=== PATIENT | male | born 1980 | race Caucasian/White ===

== ENCOUNTER → 2019-05-06 16:10 | Outpatient (CLI) | payer BC, SELFPAY ==
--- NOTE | 2019-05-06 16:32 | ECG_ITS ---
APPROVED REPORT Exam: Resting ECG HR:87 bpm ECG Measurements Heart Rate 87 AXES MO 132 P 74 QRSd 88 QRS 80 QT 320 T 67 QTc 385 <Conclusion> Normal sinus rhythm Normal ECG Electronically signed by : Raj Burch, 05/08/2019 19:15:44
[2019-05-06 16:51] LABS: Basophils # 0.1 K/mm3 (0-0.2); Basophils % 0.6 % (0.1-2.0); Eosinophils # 0.3 K/mm3 (0.0-0.4); Eosinophils % 2.4 % (0.1-12.0); Hematocrit 47.8 % (42.0-52.0); Hemoglobin 15.6 g/dL (14.1-18.0); Lymphocytes # 3.8 K/mm3 (0.7-4.5); Mean Corpuscular HGB Conc 32.7 g/dL (31.8-35.4); Mean Corpuscular Hemoglobin 30.5 pg (27.0-31.2); Mean Corpuscular Volume 93.3 fl (80-94); Mean Platelet Volume 7.6 fl (7.4-10.4); Monocytes # 0.7 K/mm3 (0.1-1.0); Monocytes % 5.8 % (1.7-9.3); Neutrophils # 7.9 K/mm3 (1.8-7.8); Neutrophils % 61.2 % (37.0-80.0); Platelet Count 433 K/mm3 (142-424); Red Blood Count 5.12 M/mm3 (4.60-6.20); Red Cell Distribution Width 13.3 % (11.5-17.5); White Blood Count 12.8 K/mm3 (4.8-10.8)
== END ==
PROVIDERS: Visit Provider Otolaryngology
DX: Z01.818 Encounter for other preprocedural examination (principal); H61.21 Impacted cerumen, right ear; H60.8X1 Other otitis externa, right ear
CPT/HCPCS: 36415; 85025; 93005

== ENCOUNTER → 2019-09-14 13:34 | Outpatient (CLI) | payer BC, SELFPAY ==
--- NOTE | 2019-09-14 13:39 | XR_ITS ---
PROCEDURE: XR FOOT WT BEARING RT 3V CLINICAL INDICATION: pain COMPARISON: No exams were available for comparison FINDINGS: No fracture or dislocation. No lytic or blastic change. There is normal mineralization. The joint spaces are well-preserved. No significant degenerative/arthritic changes. No erosive changes evident. Other findings:Borderline pes planus IMPRESSION: Borderline pes planus otherwise negative Dictated by: José Miguel Kwan MD 09/14/2019 14:51 Electronically signed by José Miguel Kwan MD in [facility] 09/14/2019 14:51
--- NOTE | 2019-09-14 13:39 | XR_ITS ---
PROCEDURE: XR FOOT WT BEARING LT 3V CLINICAL INDICATION: pain Foot pain COMPARISON: No exams were available for comparison FINDINGS: No fracture or dislocation. No lytic or blastic change. There is normal mineralization. The joint spaces are well-preserved. No significant degenerative/arthritic changes. No erosive changes evident. Other findings:None. IMPRESSION: No acute findings. Dictated by: José Miguel Kwan MD 09/14/2019 14:52 Electronically signed by José Miguel Kwan MD in [facility] 09/14/2019 14:52
== END ==
PROVIDERS: PCP Family Medicine; Visit Provider Podiatrist
DX: M79.672 Pain in left foot (principal); M79.671 Pain in right foot
CPT/HCPCS: 73630

== ENCOUNTER → 2019-10-04 14:31 | Outpatient (CLI) | payer BC, SELFPAY ==
--- NOTE | 2019-10-04 14:33 | US_ITS ---
APPROVED REPORT Exam Type: Lower Extremity Segmental Pressures Hiv Nurse: Nata De La Vega RDCS Indications Rest Pain: Numbness/Tingling Current Smoker History of Smoking Pressures/Indices Right Indices Left Indices Brachial 121.00 mmHg Brachial 121.00 mmHg Low Thigh 122.00 mmHg 1.01 Low Thigh 120.00 mmHg 0.99 Calf 137.00 mmHg 1.13 Calf 118.00 mmHg 0.98 Ankle(PT) 130.00 mmHg 1.07 Ankle(PT) 130.00 mmHg 1.07 Ankle(DP) 129.00 mmHg 1.07 Ankle(DP) 125.00 mmHg 1.03 Digit 119.00 mmHg 0.98 Digit 104.00 mmHg 0.86 Findings R SHERRIE 1.1 L SHERRIE 1.1 R TBI 1.0 L TBI .9 NORMAL PULSES/WAVEFORMS Conclusion Normal appearing resting noninvasive lower extremity arterial study. Electronically signed by : José Miguel Kwan MD 10/04/2019 17:39:28
== END ==
PROVIDERS: PCP Family Medicine; Visit Provider Podiatrist
DX: R09.89 Other specified symptoms and signs involving the circulatory and respiratory systems (principal)
CPT/HCPCS: 93923

== ENCOUNTER → 2019-10-06 16:01 | Outpatient (CLI) | payer BC, SELFPAY ==
--- NOTE | 2019-10-06 16:01 | MR_ITS ---
PROCEDURE: MR FOOT RT WO/W CON CLINICAL INDICATION: Right foot pain Foot pain and burning, Miranda's neuroma Miranda's neuroma the common new in worsening pain along the right foot between the 2nd and 3rd metatarsals, metatarsalgia COMPARISON: XR FOOT WT BEARING RT 3V from 09/14/2019 TECHNIQUE: Routine multiplanar multi echo sequences are performed without and with gadolinium enhancement. FINDINGS: No fracture or dislocation. No bone bruise apparent. No bone marrow edema. No abnormal fluid collections. No evidence of Miranda's neuroma. No ligamentous or tendon abnormalities apparent. Small amount fluid is present along the posterior aspect of the talocalcaneal joint which is nonspecific. No enhancing lesions. The talar dome has an unremarkable appearance. No soft tissue masses. Plantar aponeurosis appears intact IMPRESSION: Negative MRI of the foot without and with gadolinium enhancement Dictated by: José Miguel Kwan MD 10/08/2019 07:04 Electronically signed by José Miguel Kwan MD in [place] 10/08/2019 07:04
--- NOTE | 2019-10-06 16:10 | XR_ITS ---
PROCEDURE: XR ORBIT BILATERAL MIN 4V CLINICAL INDICATION: RULE OUT METAL FOREIGN BODY FOR MRI COMPARISON: No exams were available for comparison TECHNIQUE: AP views are obtained of the orbits with the patient looking up and down. FINDINGS: No radio opaque foreign bodies evident. IMPRESSION: No radio opaque orbital foreign body identified. Dictated by: José Miguel Kwan MD 10/06/2019 16:53 Electronically signed by José Miguel Kwan MD in [place] 10/06/2019 16:53
== END ==
PROVIDERS: PCP Family Medicine; Visit Provider Podiatrist
DX: G57.61 Lesion of plantar nerve, right lower limb (principal); H05.53 Retained (old) foreign body following penetrating wound of bilateral orbits
CPT/HCPCS: 70200; 73720; A9576

== ENCOUNTER → 2020-04-03 17:42 | Outpatient (CLI) | payer BC, SELFPAY | PROVIDERS: Visit Provider Podiatrist | DX: L60.8 Other nail disorders (principal) | CPT/HCPCS: 87102; 87206; 87220 ==